=== PATIENT | male | born 1985 | race Asian ===

== ENCOUNTER 2017-08-23 11:00 | Day surgery (SDC) | payer MEDICAID ==
[2017-08-23] MEDS ORDERED: LR 1,000 ML IV ONE (11:22)
[2017-08-23] MEDS ORDERED: INDOMETHACIN 50 MG SUPP PR PRN (12:58)
[2017-08-23] MEDS ORDERED: NS 500 ML IV SCH (13:00)
--- NOTE | 2017-08-23 13:00 | PDGENHP ---
History & Physical Chief Complaint: nausea, vomiting History of Present Illness: 32 year old male from [facility] with heartburn, nausea , vomiting, change in bowel habits and rectal bleed, Pertinent Past, Social, Family History: FaMHx: no hx CRC Relevant Physical Exam: HEENT: anicteric. CV: RRR +s1s2. lungs: CTAB. Abd: soft, nt, + bs No guarding or rebound Cardiorespiratory Assessment: ASA 2
--- NOTE | 2017-08-23 13:02 | PDANEPAE ---
ANE History of Present Illness Heartburn ANE Past Medical History - Cardiovascular History Hx Hypertension: No Hx Arrhythmias: No Hx Chest Pain: No Hx Coronary Artery / Peripheral Vascular Disease: No Hx CHF / Valvular Disease: No Hx Palpitations: No - Pulmonary History Hx COPD: No Hx Asthma/Reactive Airway Disease: No Hx Recent Upper Respiratory Infection: No Hx Oxygen in Use at Home: No Hx Sleep Apnea: No Sleep Apnea Screening Result - Last Documented: Negative - Neurologic History Hx Cerebrovascular Accident: No Hx Seizures: No Hx Dementia: No - Endocrine History Hx Diabetes: No - Renal History Hx Renal Disorders: No - Liver History Hx Hepatic Disorders: No - Neurological & Psychiatric Hx Hx Neurological and Psychiatric Disorders: Yes Neurological / Psychiatric History Comment: anxiety. schizophrenia - Cancer History Hx Cancer: No - Congenital Disorder History Hx Congenital Disorders: No - GI History Hx Gastrointestinal Disorders: Yes Gastrointestinal History Comment: chronic constipation - Other Health History Other Health History: none - Chronic Pain History Chronic Pain: Yes (joint and muscle pain) - Surgical History Prior Surgeries: broken right ankle and leg repair x2 ANE Review of Systems Review of Systems: - Exercise capacity METS (RN): 4 METS ANE Patient History - Allergies Allergies/Adverse Reactions: Milk Containing Products [dairy] Allergy (Verified 08/18/17 15:54) loose stools - Home Medications Home Medications: Depakote 10/02/15 [Last Taken Unknown] Chantix 08/18/17 [Last Taken Unknown] Risperdal 08/18/17 [Last Taken Unknown] Tylenol 08/18/17 [Last Taken Unknown] - NPO status NPO Since - Liquids (Date): 08/23/17 NPO Since - Liquids (Time): 09:00 NPO Since - Solids (Date): 08/22/17 - Anes Hx Anes Hx: no prior problems - Smoking Hx Smoking Status: Former smoker - Family Anes Hx Family Hx Anesthesia Complications: none ANE Labs/Vital Signs - Vital Signs Blood Pressure: 120/70 Heart Rate: 76 Respiratory Rate: 16 O2 Sat (%): 94 Height: 170.18 cm Weight: 79.379 kg ANE Physical Exam - Airway Neck exam: FROM Mallampati Score: Class 2 Mouth exam: normal dental/mouth exam - Pulmonary Pulmonary: no respiratory distress - Cardiovascular Cardiovascular: regular rate and rhythym - ASA Status ASA Status: II ANE Anesthesia Plan Anesthesia Plan: MAC
[2017-08-23] MEDS ORDERED: PROPOFOL/EMULSION 500 MG/50 ML BOTTLE IV ONE (13:05)
[2017-08-23] MEDS ORDERED: LIDOCAINE 2% 5 ML SDV ONE (13:06)
--- NOTE | 2017-08-23 13:19 | GIREPORT ---
[facility] Surgical Services - Endoscopy Department Patient Name: Zachary Bailon Procedure Date: 08/23/2017 12:57 PM Patient Type: Outpatient Attending MD/ ER Physician: Carlos Khan MD Procedure: Upper GI endoscopy Indications: Heartburn, Nausea with vomiting Patient Profile: 32 year old male presents for evaluaiton of heartburn, nasuea, vomiting , and change in bowel habits. Providers: Carlos Khan MD Medicines: Monitored Anesthesia Care Complications: No immediate complications. Estimated blood loss: Minimal. Description of Procedure: After obtaining informed consent, the endoscope was passed under direct vision. Throughout the procedure, the patient's blood pressure, pulse, and oxygen saturations were monitored continuously. The Endoscope was intro duced through the mouth, and advanced to the second part of duodenum. The [facility] er GI endoscopy was accomplished without difficulty. The patient tolerated th e procedure well. Findings: The examined esophagus was normal. A medium-sized hiatal hernia was present. Patchy mildly erythematous mucosa was found in the gastric body and in the gastric antrum. Biopsies were taken with a cold forceps for histology. The examined duodenum was normal. Biopsies for histology were taken wit h a cold forceps for evaluation of celiac disease. Estimated Blood Loss: Estimated blood loss was minimal. Post Op Diagnosis: - Normal esophagus. - Medium-sized hiatal hernia. - Erythematous mucosa in the gastric body and antrum. Biopsied. - Normal examined duodenum. Biopsied. - Etiology? No obvious cause of symptoms. GERD? Increase PPI to full do se. Await biopsy results. Recommendation: - Perform a colonoscopy today. - Follow an antireflux regimen. - Use a proton pump inhibitor PO daily (full dose). - Await pathology results. - Thank you for allowing me to participate in the care of oyur patient. Attending Participation: I personally performed the entire procedure. Carlos Khan MD Carlos Khan MD 08/23/2017 1:19:08 PM This report has been signed electronicallyCarlos Khan MD Number of Addenda: 0 Note Initiated On: 08/23/2017 12:57 PM [email or web address]
[2017-08-23] MEDS ORDERED: ONDANSETRON 4 MG/2 ML VIAL IVP PRN (13:21)
[2017-08-23] MEDS ORDERED: NALOXONE HCL 0.4 MG/ML INJ IVP PRN (13:21)
--- NOTE | 2017-08-23 13:47 | POSTANESTH ---
Post Anesthetic Evaluation Cardiovascular Status: Similar to Pre-Op Cond Respiratory Status: Similar to Pre-op Cond. Level of Consciousness/Mental Status: Can Participate in Eval Pain Control: Adequate, Prn Tx Ordered Nausea/Vomiting Control: Adequate, Prn Tx Ordered Complications Possibly Related to Anesthesia: None Noted
--- NOTE | 2017-08-23 13:49 | GIREPORT ---
[facility] Surgical Services - Endoscopy Department Patient Name: Zachary Bailon Procedure Date: 08/23/2017 1:18 PM Patient Type: Outpatient Attending MD/ ER Physician: Carlos Khan MD Procedure: Colonoscopy Indications: Hematochezia, Change in bowel habits Patient Profile: 32 year male presents for evaluation of hematochezia and change in hussein l habits. Providers: Carlos Khan MD Medicines: Monitored Anesthesia Care Complications: No immediate complications. Estimated blood loss: Minimal. Description of Procedure: After obtaining informed consent, the scope was passed under direct vis ion. Throughout the procedure, the patient's blood pressure, pulse, and oxyg en saturations were monitored continuously. The Colonoscope with irrigatio n channel was introduced through the anus and advanced to the terminal il eum. The colonoscopy was performed without difficulty. The patient tolerated the procedure well. The quality of the bowel preparation was good. The term inal ileum, ileocecal valve, appendiceal orifice, and rectum were photograph ed. Findings: The perianal and digital rectal examinations were normal. Pertinent negatives include no palpable rectal lesions. The terminal ileum appeared normal. The entire examined colon appeared normal. Biopsies for histology were taken with a cold forceps for evaluation of microscopic colitis. Estimated Blood Loss: Estimated blood loss was minimal. Post Op Diagnosis: - The examined portion of the ileum was normal. - The entire examined colon is normal. Biopsied. Recommendation: - Discharge patient to home (with escort). - Resume previous diet. - Continue present medications. - Repeat colonoscopy at age 51 for screening purposes. - Await pathology results. - Thank you for allowing me to participate in the care of your patient. Attending Participation: I personally performed the entire procedure. Carlos Khan MD Carlos Khan MD 08/23/2017 1:48:40 PM This report has been signed electronicallyCarlos Khan MD Number of Addenda: 0 Note Initiated On: 08/23/2017 1:18 PM [email or web address]
[2017-08-23 13:52] VITALS: TEMP 97.7
[2017-08-23 14:25] VITALS: BP 138/94; PULSE 65; RESP 17; O2SAT 96
== END 2017-08-23 14:50 | disposition home or self-care (01) ==
LOC: FSGY 11:00
PROVIDERS: ATTEND Internal Medicine Gastroenterology
PROC: 0DBE8ZX Excision of Large Intestine, Via Natural or Artificial Opening Endoscopic, Diagnostic (ICD-10-PCS; principal; 2017-08-23 13:15)
PROC: 0DJ08ZZ Inspection of Upper Intestinal Tract, Via Natural or Artificial Opening Endoscopic (ICD-10-PCS; principal; 2017-08-23 13:15)
PROC: 0DB98ZX Excision of Duodenum, Via Natural or Artificial Opening Endoscopic, Diagnostic (ICD-10-PCS; principal; 2017-08-23 13:15)
PROC: 0DB68ZX Excision of Stomach, Via Natural or Artificial Opening Endoscopic, Diagnostic (ICD-10-PCS; principal; 2017-08-23 13:15)
PROC: 0DJD8ZZ Inspection of Lower Intestinal Tract, Via Natural or Artificial Opening Endoscopic (ICD-10-PCS; principal; 2017-08-23 13:15)
DX: R11.2 Nausea with vomiting, unspecified (principal); R12 Heartburn; K92.1 Melena; K44.9 Diaphragmatic hernia without obstruction or gangrene; F41.9 Anxiety disorder, unspecified
CPT/HCPCS: J2704

== ENCOUNTER 2017-09-13 13:23 | Emergency (ER) | payer MEDICAID ==
[2017-09-13] MEDS ORDERED: OLANZapine DISINTEGR 5 MG TAB PO ONE (14:04)
[2017-09-13 14:09] LABS: PLATELET COUNT 227 10^3/uL (150-400)
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
[2017-09-13] MEDS ORDERED: NICOTINE 21 MG/24 HR PATCH TD ONE ×2 (16:17→16:19)
[2017-09-13] MEDS ORDERED: risperiDONE MICROSPHERES 37.5 MG/2 ML SYR IM ONE (20:10)
[2017-09-13] MEDS ORDERED: traZODone 50 MG TAB PO ONE (20:13)
[2017-09-13] MEDS ORDERED: hydrOXYzine HCL 25 MG TAB PO ONE (20:14)
[2017-09-13] MEDS ORDERED: DIVALPROEX ER 500 MG TAB PO ONE (20:30)
[2017-09-13] MEDS ORDERED: LORazepam 1 MG TAB PO ONE (22:42)
[2017-09-13] MEDS ORDERED: OLANZapine DISINTEGR 10 MG TAB PO ONE (23:48)
[2017-09-13] MEDS ORDERED: OLANZapine DISINTEGR 10 MG TAB ONE (23:49)
[2017-09-14] MEDS ORDERED: IBUPROFEN 600 MG TAB PO ONE (09:32)
[2017-09-14] MEDS ORDERED: OLANZapine DISINTEGR 10 MG TAB PO ONE (14:10)
[2017-09-14 17:42] VITALS: O2SAT 96
[2017-09-14 18:59] VITALS: BP 110/80; PULSE 70; RESP 12; TEMP 97.7
== END 2017-09-14 19:05 ==
DX: F20.9 Schizophrenia, unspecified (principal); Z91.14 Patient's other noncompliance with medication regimen; Z87.891 Personal history of nicotine dependence
CPT/HCPCS: 80305; G0480; J2794

== ENCOUNTER 2017-09-16 21:27 | Emergency (ER) | payer MEDICAID ==
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
--- NOTE | 2017-09-16 21:43 | CPEKG ---
Heart Rate: 122 RR Interval: 492 P-R Interval: 120 QRSD Interval: 86 QT Interval: 304 QTC Interval: 433 P [place]: 55 QRS [place]: 61 T Wave [place]: 16 EKG Severity - OTHERWISE NORMAL ECG - EKG Impression: SINUS TACHYCARDIA Electronically Signed By: Mikey Holley 17-Sep-2017 10:47:27
[2017-09-16] MEDS ORDERED: NS 1,000 ML IV ONE (21:44)
[2017-09-16 22:09] LABS: PLATELET COUNT 244 10^3/uL (150-400)
[2017-09-17 15:55] VITALS: RESP 18
[2017-09-17 19:32] VITALS: BP 143/88; PULSE 78; TEMP 98.1; O2SAT 96
== END 2017-09-17 19:33 | disposition home or self-care (01) ==
DX: F20.9 Schizophrenia, unspecified (principal); E86.9 Volume depletion, unspecified; Z87.891 Personal history of nicotine dependence
CPT/HCPCS: 80305; G0480

== ENCOUNTER 2017-09-28 23:26 | Emergency (ER) | payer MEDICAID ==
[2017-09-28 23:34] VITALS: PULSE 81; TEMP 97.9
--- NOTE | 2017-09-28 23:46 | EDPHY ---
H & P Stated Complaint: HI, m1 Source: Patient, Police - Personal History Current Tetanus Diphtheria and Acellular Pertussis (TDAP): Yes Tetanus Vaccine Date: 2005 - Medical/Surgical History Hx Asthma: No Hx Chronic Respiratory Disease: No Hx Diabetes: No Hx Cardiac Disease: No Hx Renal Disease: No Hx Cirrhosis: No Hx Alcoholism: No Hx HIV/AIDS: No Hx Splenectomy or Spleen Trauma: No Other PMH: Schizophrenia, ORTHO SURGERY - Social History Smoking Status: Former smoker HPI/ROS: HPI CHIEF COMPLAINT: M1 hold by Mya Mungo HISTORY OF PRESENT ILLNESS: Patient is a 32-year-old male he has history of schizoaffective, bipolar disorder, anxiety, depression and presents emergency room on M1 hold by police. They brought him here to the emergency room on M1 hold because his family called 911 as he was stating he was going to kill everybody. The patient denies this to me. He does state that his medications are not working for his bipolar disorder. He states he needs a different depression medication and anxiety medication. Past Medical History: Bipolar disorder, schizoaffective disorder, anxiety, depression Past Surgical History: Denies Social History: Denies drugs alcohol tobacco Family History: Noncontributory ROS REVIEW OF SYSTEMS: A comprehensive 10 point review of systems is otherwise negative aside from elements mentioned in the history of present illness. Exam Constitutional triage nursing summary reviewed, vital signs reviewed, awake/ alert. Eyes normal conjunctivae and sclera, EOMI, PERRLA. HENT normal inspection, atraumatic, moist mucus membranes, no epistaxis, neck supple/ no meningismus, no raccoon eyes. Respiratory clear to auscultation bilaterally, normal breath sounds, no respiratory distress, no wheezing. Cardiovascular rate normal, regular rhythm, no murmur, no edema, distal pulses normal. Gastrointestinal soft, non-tender, no rebound, no guarding, normal bowel sounds, no distension, no pulsatile mass. Genitourinary no CVA tenderness. Musculoskeletal no midline vertebral tenderness, full range of motion, no calf swelling, no tenderness of extremities, no meningismus, good pulses, neurovascularly intact. Skin pink, warm, & dry, no rash, skin atraumatic. Neurologic awake, alert and oriented x 3, AAOx3, moves all 4 extremities equally, motor intact, sensory intact, CN II-XII intact, normal cerebellar, normal vision, normal speech. Psychiatric homicidal. Anxious. Depressed. Heme/Lymph/Immune no lymphadenopathy. Differential Diagnosis: Includes but is not limited to in a particular order bipolar disorder, mood disorder, schizophrenia, anxiety, depression, suicidal ideation, homicidal ideation Medical Decision Making: Plan for this patient blood draw for medical clearance , 1 mg p. O. Ativan for anxiety. Patient on M1 hold by police. Patient will need mental health evaluation. Re-evaluation: 1208: 1 mg p. o. Ativan ordered for anxiety. Patient on M1 hold. (Akash Cary) Constitutional: Initial Vital Signs Temperature (C) 36.6 C 09/28/17 23:30 Heart Rate 81 09/28/17 23:30 Respiratory Rate 20 09/28/17 23:30 Blood Pressure 119/88 H 09/28/17 23:30 O2 Sat (%) 97 09/28/17 23:30 O2 Delivery Mode Room Air Allergies/Adverse Reactions: Milk Containing Products [dairy] Allergy (Verified 09/28/17 23:30) loose stools Home Medications: Medication Instructions Recorded Depakote 10/02/15 Chantix 08/18/17 Risperdal 08/18/17 Tylenol 08/18/17 Medical Decision Making Other Provider: Patient signed out to me at 0700. At 0702, [employer] turf sales person consulted with me - their plan is to cab the patient to their outpatient facility with plan for ultimate transfer to their respite care center. They feel the patient is low risk for transfer, and have asked me to terminate the M1 hold so that the patient may be transferred. (Eduardo Rider) - Data Points Laboratory Results: Laboratory Results 09/28/17 23:45 09/28/17 23:45 09/28/17 09/28/17 09/28/17 23:45 23:45 23:45 WBC 11.16 10^3/uL H 10^3/uL (3.80-9.50) RBC 4.43 10^6/uL 10^6/uL (4.40-6.38) Hgb 13.4 g/dL L g/dL (13.7-17.5) Hct 39.3 % L % (40.0-51.0) MCV 88.7 fL fL (81.5-99.8) MCH 30.2 pg pg (27.9-34.1) MCHC 34.1 g/dL g/dL (32.4-36.7) RDW 12.8 % % (11.5-15.2) Plt Count 256 10^3/uL 10^3/uL (150-400) MPV 10.0 fL fL (8.7-11.7) Neut % (Auto) 55.6 % % (39.3-74.2) Lymph % (Auto) 33.7 % % (15.0-45.0) [place] % (Auto) 9.6 % % (4.5-13.0) Eos % (Auto) 0.4 % L % (0.6-7.6) Baso % (Auto) 0.4 % % (0.3-1.7) Nucleat RBC Rel Count 0.0 % % (0.0-0.2) Absolute Neuts (auto) 6.20 10^3/uL 10^3/uL (1.70-6.50) Absolute Lymphs (auto) 3.76 10^3/uL H 10^3/uL (1.00-3.00) Absolute Monos (auto) 1.07 10^3/uL H 10^3/uL (0.30-0.80) Absolute Eos (auto) 0.05 10^3/uL 10^3/uL (0.03-0.40) Absolute Basos (auto) 0.05 10^3/uL 10^3/uL (0.02-0.10) Absolute Nucleated RBC 0.00 10^3/uL 10^3/uL (0-0.01) Immature Gran % 0.3 % % (0.0-1.1) Immature Gran # 0.03 10^3/uL 10^3/uL (0.00-0.10) Sodium 141 mEq/L mEq/L (135-145) Potassium 3.9 mEq/L mEq/L (3.5-5.2) Chloride 107 mEq/L mEq/L (97-110) Carbon Dioxide 22 mEq/l mEq/l (22-31) Anion Gap 12 mEq/L mEq/L (8-16) BUN 14 mg/dL mg/dL (7-23) Creatinine 0.7 mg/dL mg/dL (0.7-1.3) Estimated GFR > 60 Glucose 108 mg/dL H mg/dL (70-100) Calcium 10.0 mg/dL mg/dL (8.5-10.4) Salicylates < 1.0 mg/dL L mg/dL (2.0-20.0) Urine Opiates Screen NEGATIVE (NEGATIVE) Acetaminophen < 10 mcg/mL L mcg/mL (10-30) Urine Barbiturates NEGATIVE (NEGATIVE) Ur Phencyclidine Scrn NEGATIVE (NEGATIVE) Ur Amphetamine Screen NEGATIVE (NEGATIVE) U Benzodiazepines Scrn NEGATIVE (NEGATIVE) Urine Cocaine Screen NEGATIVE (NEGATIVE) U Marijuana (THC) Screen NEGATIVE (NEGATIVE) Ethyl Alcohol < 10 mg/dL mg/dL (0-10) Medications Given: Discontinued Medications Lorazepam (Ativan) 1 mg PO ONCE ONE Stop: 09/28/17 23:50 Last Admin: 09/28/17 23:59 Dose: 1 mg Departure - Departure Clinical Impression: Schizophrenia Qualifiers: Schizophrenia type: other Qualified Code(s): F20.89 - Other schizophrenia Condition: Fair Instructions: Schizophrenia (ED) Referrals: NONE *PRIMARY CARE P,. [Primary Care Provider] - As per Instructions
[2017-09-28] MEDS ORDERED: LORazepam 1 MG TAB PO ONE (23:49)
[2017-09-29 00:04] LABS: PLATELET COUNT 256 10^3/uL (150-400)
[2017-09-29 06:17] VITALS: BP 121/78; RESP 16; O2SAT 95
== END 2017-09-29 07:40 | disposition home or self-care (01) ==
DX: F20.89 Other schizophrenia (principal); Z87.891 Personal history of nicotine dependence
CPT/HCPCS: 80305; G0480

== ENCOUNTER 2017-09-30 18:55 | Emergency (ER) | payer MEDICAID ==
--- NOTE | 2017-09-30 19:01 | EDPHY ---
H & P Smoking Status: Former smoker Time Seen by Provider: 09/30/17 19:01 HPI/ROS: CHIEF COMPLAINT: Gra[employer] disability HISTORY OF PRESENT ILLNESS: History of schizoaffective disorder, questionable the off or on medications recently, sent to us from [facility] for psychiatric evaluation on a hold by the automobile club information clerk there. According to the mental health hold is perseverating about food and has paranoid thoughts about the police. REVIEW OF SYSTEMS: Eye: no change in vision ENT: no sore throat Cardiac: no chest pain or syncope Pulmonary: no cough or SOB Abdomen: no vomiting, diarrhea, abdominal pain Musculoskeletal: no back pain Skin: no rash Neuro: no headache, the patient specifically denies Constitutional: no fever : no urinary symptoms A comprehensive 10 point review of systems is otherwise negative aside from elements mentioned in the history of present illness. PAST MEDICAL HISTORY: Schizoaffective disorder Social history: Denies drug or alcohol General Appearance: Alert and conversant, cooperative. Eyes: No scleral icterus. ENT, Mouth: Normal mucous membranes. Respiratory: Normal respiratory effort, breath sounds equal, lungs are clear to auscultation. Cardiovascular: Regular rate and rhythm. Gastrointestinal: Abdomen is soft and non tender. Neurological: Alert, face symmetric, normal motor and sensory in extremities. Ambulatory. Skin: Warm and dry, no rashes. Musculoskeletal: No peripheral edema. Psychiatric: Not agitated. Emergency Department course/MDM: Arrives on a mental health hold. Plan for vital signs and screening labs, psychiatric evaluation. Signed out to [facility] at 2200 with plan for psych admission. (Cornelio Monson) Constitutional: Initial Vital Signs Temperature (C) 36.3 C 09/30/17 19:01 Heart Rate 60 09/30/17 19:01 Respiratory Rate 18 09/30/17 19:01 Blood Pressure 102/81 H 09/30/17 19:01 O2 Sat (%) 97 09/30/17 19:01 O2 Delivery Mode Room Air Allergies/Adverse Reactions: Milk Containing Products [dairy] Allergy (Verified 09/28/17 23:30) loose stools Home Medications: Medication Instructions Recorded Risperdal 08/18/17 Ambien 09/30/17 Naltrexone HCl 09/30/17 traZODone 09/30/17 Medical Decision Making Other Provider: 2300 care assumed by me from Dr. Monson pending mental health evaluation. 0200 patient has been accepted to [facility] by Dr. Mark. I have completed the EMTALA. (Ramon Basilio) - Data Points Laboratory Results: Laboratory Results 09/30/17 19:00 09/30/17 19:00 09/30/1718 09/30/17 19:15 19:00 19:00 WBC 7.82 10^3/uL 10^3/uL (3.80-9.50) RBC 4.06 10^6/uL L 10^6/uL (4.40-6.38) Hgb 12.5 g/dL L g/dL (13.7-17.5) Hct 36.5 % L % (40.0-51.0) MCV 89.9 fL fL (81.5-99.8) MCH 30.8 pg pg (27.9-34.1) MCHC 34.2 g/dL g/dL (32.4-36.7) RDW 12.9 % % (11.5-15.2) Plt Count 237 10^3/uL 10^3/uL (150-400) MPV 10.1 fL fL (8.7-11.7) Neut % (Auto) 43.5 % % (39.3-74.2) Lymph % (Auto) 47.4 % H % (15.0-45.0) [place] % (Auto) 6.9 % % (4.5-13.0) Eos % (Auto) 1.3 % % (0.6-7.6) Baso % (Auto) 0.6 % % (0.3-1.7) Nucleat RBC Rel Count 0.0 % % (0.0-0.2) Absolute Neuts (auto) 3.40 10^3/uL 10^3/uL (1.70-6.50) Absolute Lymphs (auto) 3.71 10^3/uL H 10^3/uL (1.00-3.00) Absolute Monos (auto) 0.54 10^3/uL 10^3/uL (0.30-0.80) Absolute Eos (auto) 0.10 10^3/uL 10^3/uL (0.03-0.40) Absolute Basos (auto) 0.05 10^3/uL 10^3/uL (0.02-0.10) Absolute Nucleated RBC 0.00 10^3/uL 10^3/uL (0-0.01) Immature Gran % 0.3 % % (0.0-1.1) Immature Gran # 0.02 10^3/uL 10^3/uL (0.00-0.10) Sodium 141 mEq/L mEq/L (135-145) Potassium 4.1 mEq/L mEq/L (3.5-5.2) Chloride 104 mEq/L mEq/L (97-110) Carbon Dioxide 24 mEq/l mEq/l (22-31) Anion Gap 13 mEq/L mEq/L (8-16) BUN 12 mg/dL mg/dL (7-23) Creatinine 0.7 mg/dL mg/dL (0.7-1.3) Estimated GFR > 60 Glucose 99 mg/dL mg/dL (70-100) Calcium 9.3 mg/dL mg/dL (8.5-10.4) Urine Opiates Screen NEGATIVE (NEGATIVE) Urine Barbiturates NEGATIVE (NEGATIVE) Ur Phencyclidine Scrn NEGATIVE (NEGATIVE) Ur Amphetamine Screen NEGATIVE (NEGATIVE) U Benzodiazepines Scrn NEGATIVE (NEGATIVE) Urine Cocaine Screen NEGATIVE (NEGATIVE) U Marijuana (THC) Screen NON-NEGATIVE H (NEGATIVE) Ethyl Alcohol < 10 mg/dL mg/dL (0-10) Departure - Departure Disposition: Other Psych, Not [place] Clinical Impression: Schizoaffective disorder Qualifiers: Schizoaffective disorder type: unspecified Qualified Code(s): F25.9 - Schizoaffective disorder, unspecified Condition: Good Referrals: Patient,NotPresent [Unknown] - As per Instructions
[2017-09-30 19:09] LABS: PLATELET COUNT 237 10^3/uL (150-400)
[2017-10-01 01:29] VITALS: RESP 16; TEMP 97.9
[2017-10-01 02:29] VITALS: BP 132/74; PULSE 74; O2SAT 94
== END 2017-10-01 02:29 ==
LOC: EDUNIT#
DX: F25.9 Schizoaffective disorder, unspecified (principal); Z87.891 Personal history of nicotine dependence
CPT/HCPCS: 80305; G0480